=== PATIENT | male | born 1960 | race Caucasian/White ===

== ENCOUNTER 2019-11-16 11:31 | Emergency (ER) | payer MEDICAID ==
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
[2019-11-16] MEDS ORDERED: Diphtheria,Pertussis(Acell),Tetanus Vaccine 0.5 ML SDV IM ONE (12:29)
== END 2019-11-16 13:09 | disposition home or self-care (01) ==
LOC: JP.ED 11:31
DX: S01.01XA Laceration without foreign body of scalp, initial encounter (principal); Z23 Encounter for immunization; V86.99XA Unspecified occupant of other special all-terrain or other off-road motor vehicle injured in nontraffic accident, initial encounter
CPT/HCPCS: 90471; 90715; 99283-25